=== PATIENT | female | born 1945 | race African-American/Black ===

== ENCOUNTER 2017-12-10 17:25 | Emergency (ER) | payer MEDICARE ==
[2017-12-10 18:24] LABS: #Eosinphils 0.2 thou/uL (0.0-0.7); #Lymphocytes 1.7 thou/uL (1.20-3.40); #Monocytes 0.5 thou/uL (0.11-0.59); #Neutrophils 2.5 thou/uL (1.40-6.50); %Basophils 0.9 % (0.0-1.0); %Eosinophils 3.6 % (0.0-10.0); %Lymphocytes 34.9 % (21.0-51.0); %Monocytes 9.5 % (0.0-10.0); %Neutrophils 51.2 % (42.0-75.0); Hemoglobin 11.1 g/dL (12.0-16.0); Mean Corpuscular HGB CONC 33.7 g/dL (32.0-36.0); Mean Corpuscular Hemoglobin 33.5 pg (27.0-31.0); Mean Corpuscular Volume 99.4 fL (78.0-98.0); Mean Platelet Volume 6.5 fL (7.4-10.4); Platelet Count 172 thou/uL (130-400); RBC Distribution Width 12.7 % (11.5-14.5); White Blood Cell (WBC) Count 4.9 thou/uL (4.8-10.8)
[2017-12-10 18:42] LABS: Anion Gap 19 mmol/L (10-20); BUN (Urea Nitrogen) 93 mg/dL (9.8-20.1); Calc. Creatinine Clearance 0 mL/min (70-130); Calcium 8.7 mg/dL (7.8-10.44); Carbon Dioxide 23 mmol/L (23-31); Chloride 101 mmol/L (98-107); Estimated GFR-MDRD 4; Glucose 158 mg/dL (83-110); Potassium 4.8 mmol/L (3.5-5.1); Sodium 138 mmol/L (136-145)
--- NOTE | 2017-12-15 13:33 | EKG ---
Test Reason : Blood Pressure : / mmHG Vent. Rate : 058 BPM Atrial Rate : 058 BPM P-R Int : 128 ms QRS Dur : 092 ms QT Int : 446 ms P-R-T Axes : 030 -51 012 degrees QTc Int : 437 ms Sinus bradycardia Left anterior fascicular block Abnormal ECG Confirmed by UMA PERALTA, AMERICA ([id number]), newspaper editor managing SU MANRIQUE ([id number]) on 12/15/2017 1:32:44 PM Referred By: Confirmed By:AMERICA EATON MD
== END 2017-12-10 20:07 | disposition home or self-care (01) ==
LOC: ERS 17:25
DX: T82.591A Other mechanical complication of surgically created arteriovenous shunt, initial encounter (principal); E11.9 Type 2 diabetes mellitus without complications; I10 Essential (primary) hypertension; E66.9 Obesity, unspecified
CPT/HCPCS: 36415; 80048; 85025; 93005

== ENCOUNTER 2018-01-21 10:29 | Day surgery (SDC) | payer MEDICARE ==
[~2018-01-21 10:29] MED LIST: Bupivacaine HCl 0.5%/Epinephrine 1:200,000/PF 30 ml Vial ONE; Heparin 10,000 UNITS/ 10 ML VIAL ONE; PROPOFOL 200 MG/20 ML VIAL ONE
[2018-01-21] MEDS ORDERED: CEFAZOLIN/Water 2 GM/20 ML SYRINGE ONE (13:13)
[2018-01-21 13:38] LABS: #Eosinphils 0.3 thou/uL (0.0-0.7); #Lymphocytes 2.4 thou/uL (1.20-3.40); #Monocytes 0.7 thou/uL (0.11-0.59); #Neutrophils 3.1 thou/uL (1.40-6.50); %Basophils 0.7 % (0.0-1.0); %Eosinophils 4.5 % (0.0-10.0); %Lymphocytes 36.3 % (21.0-51.0); %Monocytes 11.4 % (0.0-10.0); %Neutrophils 47.1 % (42.0-75.0); Hemoglobin 10.2 g/dL (12.0-16.0); Mean Corpuscular HGB CONC 31.1 g/dL (32.0-36.0); Mean Corpuscular Hemoglobin 31.7 pg (27.0-31.0); Mean Platelet Volume 6.7 fL (7.4-10.4); Platelet Count 213 thou/uL (130-400); RBC Distribution Width 12.9 % (11.5-14.5); Red Blood Cell (RBC) Count 3.21 mill/uL (4.20-5.40); White Blood Cell (WBC) Count 6.5 thou/uL (4.8-10.8)
[2018-01-21 13:58] LABS: Anion Gap 13 mmol/L (10-20); BUN (Urea Nitrogen) 27 mg/dL (9.8-20.1); Calc. Creatinine Clearance 0 mL/min (70-130); Calcium 9.6 mg/dL (7.8-10.44); Carbon Dioxide 29 mmol/L (23-31); Chloride 98 mmol/L (98-107); Estimated GFR-MDRD 6; Glucose 113 mg/dL (83-110); Potassium 3.7 mmol/L (3.5-5.1); Sodium 136 mmol/L (136-145)
[2018-01-21] MEDS ORDERED: Fentanyl 100 MCG/2 ML VIAL ONE ×2 (14:23→14:43)
[2018-01-21] MEDS ORDERED: Heparin 5,000 UNITS/ML VIAL ONE (14:50)
[2018-01-21] MEDS ORDERED: Protamine Sulfate 50 MG/5 ML VIAL ONE (14:50)
[2018-01-21] MEDS ORDERED: Iothalamate Meglumine 60% 50 ML VIAL FS ONE (14:50)
[2018-01-21] MEDS ORDERED: Bupivacaine HCl 0.5%/Epinephrine 1:200,000/PF 30 ml Vial ONE (14:50)
[2018-01-21] MEDS ORDERED: Lidocaine 2% PF Inj 2 ML VIAL ONE (14:50)
[2018-01-21] MEDS ORDERED: Ioversol 68 % 50 ML VIAL ONE (14:51)
[2018-01-21] MEDS ORDERED: Heparin 10,000 UNITS/ 10 ML VIAL ONE (18:28)
--- NOTE | 2018-01-21 22:26 | OP ---
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 PROCEDURE: Revision left arm dialysis AV fistula without thrombectomy with venoplasty repair. SURGEON: Dr. Cesar Mendoza. ANESTHESIA: Regional TIVA. DESCRIPTION OF PROCEDURE: The patient was taken to the operating room where under intravenous sedati on and regional anesthesia, left upper extremity was prepared with ChloraPrep, draped in routine fash ion. Incision made from the proximal volar forearm across the antecubital fossa over the distal ceph alic vein fistula. The patient had dilatation just beyond the stenotic area and patient was given 60 00 units of heparin intravenously. After adequate circulation time, the fistula clamped proximally a nd distally with vascular clamps. Longitudinal venotomy made and it was closed transversely over the stenotic area after mobilizing adequate vein for a tension free approximation. Continuous suture of 6-0 Prolene, transverse venography performed. The patient tolerated the procedure well. The patien t is given 25 mg of protamine. Surgicel applied to subcutaneous tissue and approximated with 3-0 Mon ocryl, skin with subdermal 4-0 Monocryl and DermaGlue applied.
== END 2018-01-21 18:50 | disposition home or self-care (01) ==
LOC: SDC 10:29
PROVIDERS: ATTEND Specialist
PROC: 05WY07Z Revision of Autologous Tissue Substitute in Upper Vein, Open Approach (ICD-10-PCS; principal; 2018-01-21)
DX: T82.858A Stenosis of other vascular prosthetic devices, implants and grafts, initial encounter (principal); I12.0 Hypertensive chronic kidney disease with stage 5 chronic kidney disease or end stage renal disease; E11.22 Type 2 diabetes mellitus with diabetic chronic kidney disease; N18.6 End stage renal disease; E03.9 Hypothyroidism, unspecified; Z99.2 Dependence on renal dialysis; E66.01 Morbid (severe) obesity due to excess calories
CPT/HCPCS: 80048; 85025; J0670; J1644; J2704; J2720; J3010; Q9961; Q9967

== ENCOUNTER 2018-05-12 13:14 | Emergency (ER) | payer MEDICARE ==
--- NOTE | 2018-05-12 14:15 | CT ---
CT OF BRAIN PERFORMED WITHOUT CONTRAST ENHANCEMENT: Date: 05/12/18 HISTORY: Fall at home. FINDINGS: There is some generalized ventricular and sulcal prominent. There are no signs of intracerebral hemor rhage or extra-axial fluid collections. A large posterior scalp hematoma is noted. No underlying frac ture. Mastoid air cells are clear. There is opacification of the visualized portion of the right maxi llary sinus. IMPRESSION: No acute intracranial abnormalities. POS: [facility]
== END 2018-05-12 15:45 | disposition home or self-care (01) ==
LOC: ERS 13:14
DX: S00.03XA Contusion of scalp, initial encounter (principal); E66.9 Obesity, unspecified; E11.9 Type 2 diabetes mellitus without complications; I10 Essential (primary) hypertension; F32.9 Major depressive disorder, single episode, unspecified; W19.XXXA Unspecified fall, initial encounter
CPT/HCPCS: 70450

== ENCOUNTER 2021-12-23 20:23 | Inpatient (IN) | payer MEDICARE, SELFPAY ==
[2021-12-23] MEDS ORDERED: cefTRIAXone\\ROCEPHIN 1 GM VIAL ONE (21:34)
[2021-12-23] MEDS ORDERED: Aspirin 325 MG TAB ONE (21:34)
[2021-12-23 21:47] LABS: #Lymphocytes 0.7 thou/uL (1.20-3.40); #Monocytes 0.9 thou/uL (0.11-0.59); #Neutrophils 5.8 thou/uL (1.40-6.50); %Basophils 0.1 % (0.0-1.0); %Eosinophils 0.2 % (0.0-10.0); %Lymphocytes 9.3 % (21.0-51.0); %Monocytes 12.2 % (0.0-10.0); %Neutrophils 78.3 % (42.0-75.0); Hemoglobin 10.3 g/dL (12.0-16.0); Mean Corpuscular Hemoglobin 32.6 pg (27.0-31.0); Mean Platelet Volume 8.7 fL (7.4-10.4); Platelet Count 135 thou/uL (130-400); RBC Distribution Width 13.3 % (11.5-14.5); Red Blood Cell (RBC) Count 3.15 mill/uL (4.20-5.40); White Blood Cell (WBC) Count 7.4 thou/uL (4.8-10.8)
[2021-12-23 22:00] LABS: INR-International Normal Ratio 1.2; PTT 31.6 sec (22.9-36.1); Prothrombin Time 14.9 sec (12.0-14.7)
[2021-12-23 22:10] LABS: Acetaminophen Less than 10.0 mcg/mL (10.0-30.0); Alcohol Less than 10 mg/dL (Less than 10); Magnesium 2.1 mg/dL (1.6-2.6); Salicylate Less than 8.0 mg/dL (15.0-30.0)
[2021-12-23 22:20] LABS: ALT (SGPT) 13 U/L (8-55); AST (SGOT) 34 U/L (5-34); Albumin 3.4 g/dL (3.4-4.8); Alkaline Phosphatase 131 U/L (40-110); Anion Gap 22 mmol/L (10-20); BUN (Urea Nitrogen) 72 mg/dL (9.8-20.1); CK (CPK) 79 U/L (29-168); Calc. Creatinine Clearance 0 mL/min (70-130); Calcium 9.5 mg/dL (7.8-10.44); Carbon Dioxide 21 mmol/L (23-31); Chloride 99 mmol/L (98-107); Estimated GFR 3; Globulin 3.9 g/dL (2.4-3.5); Glucose 154 mg/dL (83-110); Lipase 46 U/L (8-78); Potassium 6.1 mmol/L (3.5-5.1); Protein, Total 7.3 g/dL (5.8-8.1); Sodium 136 mmol/L (136-145)
[2021-12-23 22:25] LABS: Bilirubin, Total 0.6 mg/dL (0.2-1.2)
[2021-12-23 22:57] LABS: Bacteria/HPF None Seen HPF (None Seen); Bilirubin Negative (Negative); Blood, Urine Negative (Negative); Clarity Clear (Clear); Glucose, Urine (Dipstick) 200 mg/dL (Negative); Ketone, Urine Negative (Negative); Leukocyte Negative Leu/uL (Negative); Nitrite Negative (Negative); Protein, Urine (Dipstick) 300 mg/dL (Neg-Trace); RBC/HPF 0-3 HPF (0-3); Specific Gravity, Urine 1.012 (1.002-1.036); Squamous Epithelial None Seen HPF (0-3); Urobilinogen Normal mg/dL (Less than 2); WBC/HPF 0-3 HPF (0-3)
[2021-12-23 23:06] LABS: Amphetamine Not Detected (NotDetected); Barbiturates Screen Not Detected (NotDetected); Benzodiazepine Screen Not Detected (NotDetected); Cocaine Metabolite Screen Not Detected (NotDetected); Methadone Not Detected (NotDetected); Methamphetamine Not Detected (NotDetected); Opiate Screen Not Detected (NotDetected); Oxycodone Screen Not Detected (NotDetected); Phencyclidine (PCP) Not Detected (NotDetected); THC/Cannabinoid Screen Not Detected (NotDetected); Tricyclic Screen Not Detected (NotDetected)
[2021-12-23] MEDS ORDERED: Ondansetron PF 4 MG/2 ML Vial IVP PRN (23:25)
[2021-12-23] MEDS ORDERED: Acetaminophen 325 MG TAB PO PRN (23:25)
[2021-12-23] MEDS ORDERED: Calcium Chloride 1 GM/10 ML Abboject SYRINGE ONE (23:27)
[2021-12-23] MEDS ORDERED: Insulin Regular 300 UNITS/3 ML VIAL ONE (23:27)
[2021-12-23] MEDS ORDERED: Sodium Bicarbonate 2.5 MEQ/5 ML VIAL ONE (23:27)
[2021-12-23] MEDS ORDERED: Dextrose 50% Abboject 50 ML SYRINGE ONE (23:27)
[2021-12-23] MEDS ORDERED: Sodium Bicarb 50 MEQ/50 ML VIAL ONE (23:31)
[2021-12-23] MEDS ORDERED: Fentanyl 100 MCG/2 ML VIAL ONE (23:50)
[2021-12-23] MEDS ORDERED: HumaLOG 300 UNITS/3 ML VIAL SC PRN ×2 (23:52)
[2021-12-23] MEDS ORDERED: Dextrose 5% in Water 1,000 ML IV PRN (23:52)
[2021-12-23] MEDS ORDERED: Dextrose 50% Abboject 50 ML SYRINGE SLOW IVP PRN (23:52)
[2021-12-24] MEDS ORDERED: hydrALAZINE 20 MG/ML VIAL SLOW IVP PRN (00:11)
[2021-12-24 01:25] LABS: SARS-CoV-2 NAA Rapid Test Not Detected (NotDetected)
[2021-12-24 01:32] LABS: HBSAg Index 0.26 S/CO (0-0.99); Hep B Core Total Ab Non-Reactive (NonReactive); Hep B Surf Ag Non-Reactive S/CO (NonReactive); Hep C IgG Ab Non-Reactive (NonReactive); Hep C Index 0.15 S/CO (0-0.79)
[2021-12-24 02:44] LABS: HBSAB Concentration 11.27 mIU/mL
[2021-12-24 06:23] LABS: #Lymphocytes 1.2 thou/uL (1.20-3.40); #Monocytes 0.9 thou/uL (0.11-0.59); #Neutrophils 5.8 thou/uL (1.40-6.50); %Eosinophils 0.3 % (0.0-10.0); %Lymphocytes 15.5 % (21.0-51.0); %Monocytes 11.7 % (0.0-10.0); %Neutrophils 72.5 % (42.0-75.0); Hemoglobin 10.3 g/dL (12.0-16.0); Mean Corpuscular Hemoglobin 32.4 pg (27.0-31.0); Mean Platelet Volume 8.6 fL (7.4-10.4); Platelet Count 129 thou/uL (130-400); RBC Distribution Width 13.2 % (11.5-14.5); Red Blood Cell (RBC) Count 3.18 mill/uL (4.20-5.40)
[2021-12-24 06:29] LABS: Hemoglobin A1c 5.1 % (4.0-6.0)
[2021-12-24 06:45] LABS: Anion Gap 17 mmol/L (10-20); BUN (Urea Nitrogen) 28 mg/dL (9.8-20.1); Calc. Creatinine Clearance 11 mL/min (70-130); Calcium 9.4 mg/dL (7.8-10.44); Carbon Dioxide 25 mmol/L (23-31); Cardiac Risk 1.9 (Less than 4.5); Chloride 97 mmol/L (98-107); Cholesterol 112 mg/dl (< 200 Desired); Estimated GFR 7; Glucose 118 mg/dL (83-110); HDL Cholesterol 59 mg/dL (>60 Neg Risk); LDL Cholesterol, Calculated 46 mg/dL; Potassium 4.4 mmol/L (3.5-5.1); Sodium 135 mmol/L (136-145); Triglycerides 33 mg/dL (Less than 150)
[2021-12-24] MEDS: hydrALAZINE 25 MG TAB PO SCH ×3 (10:41→21:33)
[2021-12-24] MEDS: Lisinopril 10 MG TAB PO SCH (10:41)
[2021-12-24] MEDS: Amlodipine 10 MG TAB PO SCH (10:41)
[2021-12-24] MEDS: Heparin 5,000 UNITS/ML VIAL SC SCH ×2 (10:43→21:34)
[2021-12-25 05:40] LABS: #Eosinphils 0.1 thou/uL (0.0-0.7); #Lymphocytes 1.8 thou/uL (1.20-3.40); #Neutrophils 3.8 thou/uL (1.40-6.50); %Basophils 0.6 % (0.0-1.0); %Eosinophils 0.9 % (0.0-10.0); %Lymphocytes 26.9 % (21.0-51.0); %Monocytes 14.3 % (0.0-10.0); %Neutrophils 57.3 % (42.0-75.0); Hemoglobin 10.2 g/dL (12.0-16.0); Mean Corpuscular HGB CONC 32.2 g/dL (32.0-36.0); Mean Corpuscular Hemoglobin 32.9 pg (27.0-31.0); Mean Platelet Volume 8.3 fL (7.4-10.4); Platelet Count 142 thou/uL (130-400); RBC Distribution Width 12.9 % (11.5-14.5); Red Blood Cell (RBC) Count 3.09 mill/uL (4.20-5.40); White Blood Cell (WBC) Count 6.6 thou/uL (4.8-10.8)
[2021-12-25 06:06] LABS: Anion Gap 19 mmol/L (10-20); BUN (Urea Nitrogen) 53 mg/dL (9.8-20.1); Calc. Creatinine Clearance 8 mL/min (70-130); Carbon Dioxide 26 mmol/L (23-31); Chloride 93 mmol/L (98-107); Estimated GFR 5; Glucose 101 mg/dL (83-110); Potassium 5.1 mmol/L (3.5-5.1); Sodium 133 mmol/L (136-145)
[2021-12-25] MEDS: Levothyroxine Sodium 125 MCG TAB PO SCH (06:16)
[2021-12-25] MEDS: Amlodipine 10 MG TAB PO SCH (12:09)
[2021-12-25] MEDS: Lisinopril 10 MG TAB PO SCH (12:09)
[2021-12-25] MEDS: hydrALAZINE 25 MG TAB PO SCH ×3 (12:09→21:51)
[2021-12-25] MEDS: Heparin 5,000 UNITS/ML VIAL SC SCH ×2 (12:10→21:52)
[2021-12-26 05:27] LABS: Anion Gap 18 mmol/L (10-20); BUN (Urea Nitrogen) 72 mg/dL (9.8-20.1); Calc. Creatinine Clearance 7 mL/min (70-130); Calcium 8.7 mg/dL (7.8-10.44); Carbon Dioxide 23 mmol/L (23-31); Chloride 93 mmol/L (98-107); Estimated GFR 4; Glucose 93 mg/dL (83-110); Potassium 4.9 mmol/L (3.5-5.1); Sodium 129 mmol/L (136-145)
[2021-12-26] MEDS: Levothyroxine Sodium 125 MCG TAB PO SCH (05:36)
[2021-12-26 05:46] LABS: Eosinophils 1 % (0-10); Hemoglobin 9.9 g/dL (12.0-16.0); Lymphocytes 41 % (21-51); MDiff Complete? YES; Mean Corpuscular HGB CONC 33.9 g/dL (32.0-36.0); Mean Corpuscular Hemoglobin 34.1 pg (27.0-31.0); Mean Platelet Volume 8.2 fL (7.4-10.4); Monocytes 12 % (0-10); Neutrophil 46 % (42-75); Platelet Count 141 thou/uL (130-400); RBC Distribution Width 12.8 % (11.5-14.5); White Blood Cell (WBC) Count 4.7 thou/uL (4.8-10.8)
[2021-12-26] MEDS: Heparin 5,000 UNITS/ML VIAL SC SCH (08:06)
[2021-12-26] MEDS: hydrALAZINE 25 MG TAB PO SCH (08:07)
[2021-12-26] MEDS: Lisinopril 10 MG TAB PO SCH (08:07)
[2021-12-26] MEDS: Amlodipine 10 MG TAB PO SCH (09:00)
[2021-12-26 12:51] VITALS: BP 173/79; TEMP 97.6
== END 2021-12-26 14:40 | disposition home health service (06) | DRG 640 ==
LOC: ERS 20:23 → NEURO 23:09
PROVIDERS: ADMIT Internal Medicine; ATTEND Internal Medicine
PROC: 5A1D70Z Performance of Urinary Filtration, Intermittent, Less than 6 Hours Per Day (ICD-10-PCS; principal; 2021-12-23)
DX: E87.5 Hyperkalemia (principal); G93.41 Metabolic encephalopathy; N18.6 End stage renal disease; I12.0 Hypertensive chronic kidney disease with stage 5 chronic kidney disease or end stage renal disease; J81.1 Chronic pulmonary edema; E66.9 Obesity, unspecified; E11.22 Type 2 diabetes mellitus with diabetic chronic kidney disease; F32.A Depression, unspecified; D63.1 Anemia in chronic kidney disease; E03.9 Hypothyroidism, unspecified; Z20.822 Contact with and (suspected) exposure to COVID-19; Z79.899 Other long term (current) drug therapy; Z68.30 Body mass index [BMI] 30.0-30.9, adult
CPT/HCPCS: 36415; 36416; 70450; 70551; 71045; 80048; 80053; 80061; 80306; 80307; 81003; 81015; 82550; 83036; 83605; 83690; 83735; 83880; 84443; 84484; 85025; 85610; 85730; 86704; 87040; 87086; 87340; 90935; 93005; G0257; J0696; J1644; J1815; J3010; J7999; U0002